=== PATIENT | male | born 1990 | race African-American/Black ===

== ENCOUNTER 2023-08-01 11:02 | Emergency (ER) | payer OTHER ==
[~2023-08-01] VITALS: Ht 190.5 cm; Wt 97.5 kg
[2023-08-01 11:09] VITALS: BP 137/74; TEMP 98; O2SAT 98
== END 2023-08-01 13:12 | disposition left against medical advice (07) ==
LOC: ER 11:10
DX: R10.84 Generalized abdominal pain (principal); Z53.21 Procedure and treatment not carried out due to patient leaving prior to being seen by health care provider